=== PATIENT | male | born 1985 | race Caucasian/White ===

== ENCOUNTER 2017-09-14 17:47 | Emergency (ER) | payer MEDICAID ==
[~2017-09-14] VITALS: Ht 170.2 cm; Wt 77.1 kg
[2017-09-14 18:01] VITALS: BP_SYST 124
[2017-09-14] MEDS ORDERED: LIDOCAINE 1% 10 MG/ML, 20 ML MDV IJ ONE (22:00)
[2017-09-14 23:11] VITALS: BP_SYST 123
== END 2017-09-14 23:11 | disposition home or self-care (01) ==
LOC: SED 17:47
DX: L02.31 Cutaneous abscess of buttock (principal); I10 Essential (primary) hypertension
CPT/HCPCS: 10060; 99283; J2001

== ENCOUNTER 2017-11-30 17:02 | Emergency (ER) | payer MEDICAID ==
[~2017-11-30] VITALS: Ht 170.2 cm; Wt 74.8 kg
[2017-11-30 17:10] VITALS: BP_SYST 116
[2017-11-30 18:39] LABS: BILIRUBIN,URINE NEGATIVE (NEGATIVE); CLARITY/URINE SL HAZY (CLEAR); COLOR,URINE YELLOW (YELLOW); GLUCOSE,URINE NEGATIVE (NEGATIVE); KETONES,URINE TRACE (NEGATIVE); LEUKOCYTE ESTERASE ,URINE NEGATIVE (NEGATIVE); NITRITE, URINE NEGATIVE (NEGATIVE); PROTEIN URINE TRACE (NEGATIVE); UROBILINOGEN,URINE 0.2 (0.2-1.0)
[2017-11-30 18:41] LABS: BLOOD, URINE TRACE (NEGATIVE)
[2017-11-30] MEDS ORDERED: DIAZEPAM 5 MG TABLET (VALIUM) PO ONE (18:45)
[2017-11-30] MEDS ORDERED: HYDROcodone/ACETAMIN 7.5-325 MG TAB PO ONE (18:45)
[2017-11-30] MEDS ORDERED: KETOROLAC TROMETHAMINE 60 MG/2 ML VIAL IM ONE (18:45)
[2017-11-30 18:50] LABS: BACTERIA,URINE FEW /HPF (None Seen); MUCUS,URINE 3+ /LPF (None Seen); RBC,URINE 0-3 /HPF (0-3)
[2017-11-30 18:51] LABS: URINE AMORPHOUS URATE 2+ /HPF (None Seen)
[2017-11-30] MEDS ORDERED: CIPROFLOXACIN HCL 500 MG TABLET PO ONE (19:30)
[2017-11-30 20:30] VITALS: BP_SYST 116
== END 2017-11-30 20:30 | disposition home or self-care (01) ==
LOC: SED 17:02
DX: N41.0 Acute prostatitis (principal); M54.5 Low back pain; I10 Essential (primary) hypertension
CPT/HCPCS: 72131; 81000; 96374; 99285; J1885

== ENCOUNTER 2020-04-20 02:46 | Emergency (ER) | payer MEDICAID ==
[~2020-04-20] VITALS: Ht 172.7 cm; Wt 72.6 kg
[2020-04-20 03:00] VITALS: BP_SYST 129
[2020-04-20 06:08] LABS: BASOPHILS % (AUTO) 0.5 % (0.0-2.0); EOSINOPHILS # (AUTO) 0.7 K/uL (0.0-0.4); EOSINOPHILS % (AUTO) 7.5 % (0.0-4.0); HEMATOCRIT 36.9 % (36-54); HEMOGLOBIN 12.5 g/dL (14.0-18.0); LYMPHOCYTES # (AUTO) 1.9 K/uL (1.0-5.5); LYMPHOCYTES % (AUTO) 19.5 % (20.5-51.5); MEAN CORPUSCULAR HEMOGLOBIN 32 pg (27-31); MEAN CORPUSCULAR HGB CONC 34 % (32-36); MEAN CORPUSCULAR VOLUME 93 fL (79.0-98.0); MONOCYTES # (AUTO) 0.7 K/uL (0.0-1.0); MONOCYTES % (AUTO) 7.6 % (1.7-9.3); NEUTROPHILS # (AUTO) 6.3 K/uL (1.8-7.7); NEUTROPHILS % (AUTO) 64.9 % (40.0-70.0); PLATELET COUNT (AUTO) 295 K/uL (130-430); RED BLOOD CELL COUNT(AUTO) 3.99 MIL/uL (4.2-6.2); RED CELL DISTRIBUTION WIDTH 13.1 % (9.0-15.0); WHITE BLOOD COUNT (AUTO) 9.7 K/uL (4.8-10.8)
[2020-04-20 06:24] LABS: ANION GAP 7 (5-15); CHLORIDE 102 mmol/L (98-107); CREATININE 0.99 mg/dL (0.55-1.30); GLUCOSE 101 mg/dL (70-99); POTASSIUM 3.8 mmol/L (3.5-5.1); SODIUM SERUM 136 mmol/L (136-145); UREA NITROGEN, BLOOD 19 mg/dL (8-21)
[2020-04-20 06:29] LABS: GFR AFRICAN AMERICAN 111 mL/min (>90)
[2020-04-20 06:32] LABS: ALANINE AMINOTRANSFERASE 46 U/L (12-78); ALBUMIN 3.6 g/dL (3.4-4.8); ASPARTATE AMINOTRANSFERASE 21 U/L (10-37); TOTAL BILIRUBIN 0.3 mg/dL (0.0-1.0)
[2020-04-20 06:52] VITALS: BP_SYST 129
== END 2020-04-20 06:52 | disposition home or self-care (01) ==
LOC: SED 02:46
DX: R06.00 Dyspnea, unspecified (principal); I10 Essential (primary) hypertension
CPT/HCPCS: 36415; 71045; 80053; 83880; 84484; 85025; 99284

== ENCOUNTER 2022-02-26 14:49 | Emergency (ER) | payer MEDICAID ==
[~2022-02-26] VITALS: Ht 172.7 cm; Wt 73.0 kg
[2022-02-26 15:17] VITALS: BP_SYST 110
--- NOTE | 2022-02-26 15:21 | NUR ---
Patient triaged and placed in waiting room. VSS and patient appears in no acute distress at this time. Accompanied by self, awaiting available bed, and MD notified of need for MSE. Patient complaining of sharp head pain only when lifting heavy objects x 6 days with intermittent dizziness and nasea. Denies any blurred vision. Denies any trauma. Denies any pain at this time
--- NOTE | 2022-02-26 15:54 | NUR ---
ER IN TRIAGE examining patient.
--- NOTE | 2022-02-26 16:00 | NUR ---
PATIENT BROUGHT IN COMPLAINING OF SHOOTING HEAD PAIN X 6 DAYS WHEN LIFTING IN THE GYM WITH INTERMITTENT NAUSEA. DENIES ANY PAIN AT THIS TIME. NO OTHER COMPLAINTS/INJURIES PER PATIENT OR NOTED.
[2022-02-26 18:37] VITALS: BP_SYST 112
--- NOTE | 2022-02-26 18:37 | NUR ---
Patient given written and verbal discharge instructions and verbalizes understanding. ER MD discussed with patient the results and treatment provided. Patient in stable condition. ID arm band removed. NO RX GIVEN. Patient educated on pain management and to follow up with PMD. Pain Scale 0/10 Opportunity for questions provided and answered.
== END 2022-02-26 18:37 | disposition home or self-care (01) ==
LOC: SED 14:49
DX: S09.11XA Strain of muscle and tendon of head, initial encounter (principal); R51.9 Headache, unspecified; I10 Essential (primary) hypertension; X50.0XXA Overexertion from strenuous movement or load, initial encounter; Y93.89 Activity, other specified; Y92.89 Other specified places as the place of occurrence of the external cause; Y99.8 Other external cause status
CPT/HCPCS: 70450-TC; 76376; 99284

== ENCOUNTER 2024-03-24 15:43 | Emergency (ER) | payer MEDICAID, OTHER ==
[~2024-03-24] VITALS: Ht 170.2 cm; Wt 76.2 kg
[2024-03-24 16:00] VITALS: BP_SYST 137; PULSE 111; RESP 18; TEMP 98.4; O2SAT 95
[2024-03-24 16:33] LABS: INFLUENZA TYPE A Negative (NEGATIVE); INFLUENZA TYPE B NEGATIVE (NEGATIVE)
[2024-03-24] MEDS ORDERED: AUG875 PO (17:57)
[2024-03-24] MEDS ORDERED: IBUP-1969 PO (17:57)
[2024-03-24] MEDS ORDERED: FLUT16SP16 NS (17:57)
[2024-03-24] MEDS: IBUPROFEN 800 MG TABLET PO ONE (18:14)
[2024-03-24 18:18] VITALS: BP_SYST 137; PULSE 111; RESP 18; TEMP 98.4; O2SAT 95
== END 2024-03-24 18:19 | disposition home or self-care (01) ==
LOC: SED 15:43
DX: J32.0 Chronic maxillary sinusitis (principal); R50.9 Fever, unspecified; I10 Essential (primary) hypertension; Z20.822 Contact with and (suspected) exposure to COVID-19
CPT/HCPCS: 36415; 99283